=== PATIENT | male | born 1955 | race Two or more races ===

== ENCOUNTER 2018-01-09 06:10 | Day surgery (SDC) | payer OTHER ==
[~2018-01-09 06:10] MED LIST: KETO10TA2 PO; PERCOCET 2.5-31 EACH PO
[2018-01-09] MEDS ORDERED: PERCOCET 5-3251 EACH PO (13:17)
[2018-01-09] MEDS ORDERED: CEFADROXIL500 MG PO (13:17)
[2018-01-09] MEDS ORDERED: ALEVE220 M1 PO (13:17)
== END 2018-01-09 14:55 | disposition home or self-care (01) ==
LOC: CIR.AMB 06:10
DX: S52.571A Other intraarticular fracture of lower end of right radius, initial encounter for closed fracture (principal)

== ENCOUNTER 2018-01-10 10:23 | Emergency (ER) | payer OTHER ==
[~2018-01-10] VITALS: Ht 165.1 cm; Wt 95.3 kg
[~2018-01-10 10:23] MED LIST changes: +ALEVE220 M1 PO; +CEFADROXIL500 MG PO; +PERCOCET 5-3251 EACH PO
== END 2018-01-10 13:51 | disposition home or self-care (01) ==
LOC: ER 10:23
DX: G89.18 Other acute postprocedural pain (principal)

== ENCOUNTER 2019-12-16 09:22 | Outpatient (CLI) | payer OTHER ==
[~2019-12-16 09:22] MED LIST changes: +DICLOFENAC POTA50 MG PO
== END 2019-12-16 09:50 | disposition home or self-care (01) ==
LOC: SONOGRAMA 09:22
DX: E04.1 Nontoxic single thyroid nodule (principal)

== ENCOUNTER → 2021-04-12 09:33 | Outpatient (CLI) | payer OTHER | END | disposition home or self-care (01) | LOC: NUCLEAR 09:00 | PROVIDERS: ATTEND Internal Medicine | DX: I73.9 Peripheral vascular disease, unspecified (principal); I87.2 Venous insufficiency (chronic) (peripheral) ==

== ENCOUNTER → 2021-04-28 | Outpatient (CLI) | payer OTHER | END | disposition home or self-care (01) | LOC: SONOGRAMA 14:04 | DX: C73 Malignant neoplasm of thyroid gland (principal) ==

== ENCOUNTER 2024-02-07 11:11 | Outpatient (CLI) | payer OTHER | END 2024-02-07 11:17 | disposition home or self-care (01) | LOC: NUCLEAR 11:11 | PROVIDERS: ATTEND Internal Medicine | DX: I73.9 Peripheral vascular disease, unspecified (principal) ==

== ENCOUNTER 2024-02-15 10:39 | Outpatient (CLI) | payer OTHER | END 2024-02-15 10:44 | disposition home or self-care (01) | LOC: SONOGRAMA 10:39 | PROVIDERS: ATTEND Internal Medicine | DX: N40.1 Benign prostatic hyperplasia with lower urinary tract symptoms (principal) ==